=== PATIENT | female | born 1965 | race Caucasian/White ===

== ENCOUNTER 2017-12-12 21:08 | Emergency (ER) | payer OTHER ==
[~2017-12-12 21:08] MED LIST: ATIVAN0.5 MG
[2017-12-12] MEDS ORDERED: BUPROPION XL300 M1 PO (21:32)
--- NOTE | 2017-12-12 21:55 | ED HAND/WRIST INJURY COMPLAINT ---
History of Present Illness General Chief Complaint: Laceration Procedure Stated Complaint: R INDEX FINGER LAC, NOT UTD WITH TETANUS Source: patient Exam Limitations: no limitations Vital Signs & Intake/Output Vital Signs & Intake/Output Vital Signs Date Time Temp Pulse Resp B/P B/P Pulse O2 O2 Flow FiO2 Mean Ox Delivery Rate 12/12 2129 96.8 78 18 140/79 98 Room Air Allergies Coded Allergies: No Known Allergies (12/12/17) Reconcile Medications Bupropion HCl (Bupropion XL) 300 MG TAB.ER.24H 1 TAB PO DAILY MENTAL HEALTH ( Reported) Triage Note: PT HAS LAC TO RIGHT SECOND DIGIT AFTER BEING CUT BY BROKEN GLASS WHILE WASHING DISHES. PT LAST TETANUS IS UNKNOWN. BLEEDING CONTROLED. PT HAS A HX OF SIMILAR INJURY WITH PARTIAL LOSS OF SENSATION TO THAT FINGER TO SECOND JOINT, BUT TODAY SHE HAS WORSENING SENSATION TO THE DISTAL PART OF HER FINGER. Triage Nurses Notes Reviewed? yes Occurred: just prior to arrival Timing: single episode today Injury Environment: home Severity: moderate Pain/Injury Location: Right: 2nd finger. Context: laceration HPI: 52yo female presents to ED complaining of laceration to right index finger sustain at home prior to arrival. Patient states she as cleaning a glass when the glass broke and cut her. Bleeding controlled with direct pressure prior to arrival here in ED. Patient is unsure of her last tetanus vaccine. Patient reports numbness to lateral aspect of her index finger. Patient has a hx of old injury to the same finger at which time she had nerve damage however she was seeing a hand specialist who performed a surgery to help correct her nerve injury. Patient believes that hand specialist is now retired. (Lois SÁNCHEZ,Ambika Tejada) Past History Travel History Traveled to [place] past 21 day No Medical History Any Pertinent Medical History? 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 No (Ambika Sandhu) Review of Systems Review of Systems Constitutional: Reports: no symptoms. EENTM: Reports: no symptoms. Respiratory: Reports: no symptoms. Cardiovascular: Reports: no symptoms. GI: Reports: no symptoms. Genitourinary: Reports: no symptoms. Musculoskeletal: Reports: see HPI. Skin: Reports: see HPI. Neurological/Psychological: Reports: see HPI. Hematologic/Endocrine: Reports: no symptoms. Immunologic/Allergic: Reports: no symptoms. All Other Systems: Reviewed and Negative (Ambika Sandhu) Physical Exam Physical Exam General Appearance: well developed/nourished, no apparent distress, alert, awake Head: atraumatic, normal appearance Eyes: Bilateral: normal appearance. Ears, Nose, Throat: hearing grossly normal Neck: normal inspection, supple, full range of motion Cardiovascular/Respiratory: no respiratory distress Back: normal inspection, normal range of motion Wrist Left: normal range of motion, normal inspection Wrist Right: normal range of motion, normal inspection Hand Left: normal inspection, normal range of motion Hand Right: 2cm laceration to lateral aspect of 2nd finger at level of MCP joint , range of motion intact Neurologic/Tendon: normal motor functions, normal tendon functions, diminished sensation to right lateral 2nd finger Skin: laceration as mentioned above Diagram Hands Front 1) 2cm laceration (Ambika Sandhu) Progress Differential Diagnosis: contusion, fracture, laceration, tendon injury, nerve damage Plan of Care: Patient's laceration was closed with sutures. Patient tolerated the procedure well. Given area of numbness the patient may have nerve damage from her laceration, the laceration is over an aspect of her finger where digital nerve is located. Given these findings patient was referred to hand/plastics specialist for further evaluation. Patient is aware of possibility of nerve damage based on her presenting injury. She was educated on signs and symptoms of infection. The patient agrees with the plan of care. (Ambika Sandhu) Departure Departure Disposition: HOME OR SELF CARE Condition: Stable Clinical Impression Primary Impression: Finger laceration Referrals: Tennille ATWOOD,Luis Calle (PCP/Family) Additional Instructions: Apply Neosporin for the next 2-3 days. While you are active keep area covered with a Band-Aid. When you are home and resting he may leave the area open to dry out. Monitor for symptoms of infection including redness, swelling, warmth, increasing pain. These are signs you may require antibiotics. Return in 7-10 days for removal of stitches. Also follow-up with hand specialist regarding the numbness or experiencing. Please note that there might be incidental findings in your evaluation that are unrelated to the current emergency department visit. Please notify your primary care doctor about this emergency department visit in order to obtain and review all of the testing performed so that these incidental findings can be monitored as needed. If you had an x-ray performed, please understand that some fractures may not be seen on the initial set of x-rays. If your symptoms persist you might need a repeat set of x-rays to check for such a fracture. If you had a laceration evaluated, please understand that foreign bodies such as glass or wood may not be visible to the naked eye or on plain x-rays. If the wound becomes red, swollen, increasingly more painful or if there is any drainage from the wound, please have it reevaluated by a physician for the possibility of a retained foreign body. If you're unable to follow up as outlined in the discharge instructions please return to the emergency department. Thank you for choosing the [facility] Emergency Department for your care. It was a pleasure to serve you today. Departure Forms: Customer Survey General Discharge Information (Lois SÁNCHEZ,Ambika Tejada) PA/MACHINE CAPTAIN Co-Sign Statement Statement: ED Attending supervision documentation- I saw and evaluated the patient. I have also reviewed all the pertinent lab results and diagnostic results. I agree with the findings and the plan of care as documented in the PA's/MACHINE CAPTAIN's documentation. x I have reviewed the ED Record and agree with the PA's/MACHINE CAPTAIN's documentation. [] Additions or exceptions (if any) to the PAs/MACHINE CAPTAIN's note and plan are summarized below: [] (Cornelio Hernandez MD) Procedures Laceration/Wound Repair Laceration/Wound Repair: Wound Location: left index finger Wound's Depth, Shape: irregular Wound Length (cm): 2 Wound Explored: irrigated extensively Irrigated w/ Saline (ccs): 200 Betadine Prep? Yes Anesthesia: 1% lidocaine Volume Anesthetic (ccs): 4 Wound Repaired With: sutures Suture Size/Type: 4:0, nylon Number of Sutures: 6 Sterile Dressing Applied: Yes Date of Last Tetanus: 12/12/17 Tetanus Status: up to date Progress: Procedure performed by PA student with my direct supervision. Patient tired procedure well. (Lois SÁNCHEZ,Ambika Tejada)
[2017-12-12 23:00] VITALS: BP 136/72
== END 2017-12-12 23:11 ==
LOC: ERH 21:08
DX: S61.210A Laceration without foreign body of right index finger without damage to nail, initial encounter (principal); W25.XXXA Contact with sharp glass, initial encounter; Y93.G1 Activity, food preparation and clean up; Y92.009 Unspecified place in unspecified non-institutional (private) residence as the place of occurrence of the external cause
CPT/HCPCS: 90471; 90714; J2001